=== PATIENT | male | born 1995 | race Two or more races ===

== ENCOUNTER 2024-12-18 14:55 | Emergency (ER) | payer OTHER ==
[~2024-12-18] VITALS: Ht 162.6 cm; Wt 79.5 kg
[2024-12-18 15:02] VITALS: TEMP 98
[2024-12-18] MEDS ORDERED: IBUP-1492 PO (19:21)
[2024-12-18] MEDS: IBUPROFEN 600 MG TABLET PO ONE (19:29)
[2024-12-18 19:51] VITALS: BP 138/68; PULSE 78; RESP 16; O2SAT 99
== END 2024-12-18 19:58 | disposition home or self-care (01) ==
LOC: EMS 14:55
DX: S93.401A Sprain of unspecified ligament of right ankle, initial encounter (principal); X50.0XXA Overexertion from strenuous movement or load, initial encounter; Y93.89 Activity, other specified; Y92.89 Other specified places as the place of occurrence of the external cause; Y99.0 Civilian activity done for income or pay
CPT/HCPCS: 99284; 73590-TC; 73610-TC; Z7502; Z7610

== ENCOUNTER 2025-09-22 16:37 | Emergency (ER) | payer OTHER ==
[~2025-09-22] VITALS: Ht 170.2 cm; Wt 75.0 kg
[~2025-09-22 16:37] MED LIST: IBUP-1492 PO
[2025-09-22 17:17] VITALS: BP 114/75; PULSE 87; RESP 16; TEMP 97.9; O2SAT 99
[2025-09-22] MEDS: PERTUSS(ACELL),DIPH,TET/PF 0.5 ML SYRINGE [ADULT] IM. ONE (17:55)
== END 2025-09-22 18:20 | disposition home or self-care (01) ==
LOC: EMS 16:37
DX: S91.332A Puncture wound without foreign body, left foot, initial encounter (principal); Z79.899 Other long term (current) drug therapy; W45.0XXA Nail entering through skin, initial encounter; Y93.89 Activity, other specified; Y92.89 Other specified places as the place of occurrence of the external cause; Y99.8 Other external cause status
CPT/HCPCS: 90471; 90715; 99283